=== PATIENT | female | born 1975 | race Caucasian/White ===

== ENCOUNTER → 2016-12-23 | Outpatient (CLI) | payer OTHER ==
[~2016-12-23] MED LIST: ACET-1256 PO; ATV1 PO; CLX20 PO; EFFSR150 PO; FAMO20TA11 PO; OXCA600T2 PO; QUET1TAB32 PO; QUET1TAB37 PO
--- NOTE | 2016-12-23 09:43 | DIAGNOSTIC IMAGING REPORT ---
BRAIN COMBO FOR SEIZURE HISTORY:41 [id number] Focal epilepsy with impairment of consciousness COMPARISON: None available. TECHNIQUE: Multiplanar multisequence MRI of the brain was obtained both with and without the use of 9 mL Gadavist utilizing seizure protocol. FINDINGS: There is no restricted diffusion to suggest acute ischemia. The midline structures including the corpus callosum, optic chiasm, pituitary gland, pineal gland, brainstem and cerebellar tonsils appear unremarkable the sagittal T1 series. There is a linear area of slightly increased T1/flair signal with associated enhancement correlating with enlarged medullary veins at the angle of the posterior body left lateral ventricle measuring up to 2.7 cm in length well seen on image 16 of the coronal T1 series and images 17 and 18 of the axial T1 postcontrast series compatible with developmental venous anomaly. Multiple focus of T2/flair prolongation within the right temporal parietal lobe as seen on image 14 of the coronal series is nonspecific and may be artifactual. Brain parenchyma is otherwise within normal limits without acute intracranial hemorrhage, midline shift, abnormal extra-axial collections, hydrocephalus or intracranial mass. There is mild asymmetric atrophy of the left hippocampus best seen on image 20 of the thin section coronal T2 series which has slightly increased amount of FLAIR signal on image 15 of the coronal FLAIR series. No associated enhancement. Opacified right maxillary sinus is noted. There is moderate ethmoid sinus disease. Flow voids at the skull base appear normal. Orbits are symmetric. IMPRESSION: 1. 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 2. 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 No significant surrounding gliosis or hemorrhage identified. 3. Paranasal sinus disease as above. The above report was generated using voice recognition software. It may contain grammatical, syntax or spelling errors. Electronically signed by: Maximo Winter M.D. 12/23/2016 9:42 AM Dictated Date/Time: 12/23/2016 9:24 AM
== END | disposition home or self-care (01) ==
LOC: C.MRIBC 08:17
PROVIDERS: ATTEND Psychiatry & Neurology Neurology
DX: G40.109 Localization-related (focal) (partial) symptomatic epilepsy and epileptic syndromes with simple partial seizures, not intractable, without status epilepticus (principal); J01.20 Acute ethmoidal sinusitis, unspecified; J01.00 Acute maxillary sinusitis, unspecified

== ENCOUNTER → 2017-02-05 | Outpatient (CLI) | payer OTHER ==
--- NOTE | 2017-02-06 12:26 | EEG Procedure Note ---
EEG Procedure Note Date of Service Feb 05, 2017. Start / End Times Start Time: 8:34am End Time: 9:34am Referring Physician Elissa Hansen History 42yr old female with focal epilepsy. 1hr EEG for further evaluation of epilepsy. Home Medication List Scheduled Acetaminophen (Tylenol), 1,000 MG PO QID PRN Citalopram (Celexa *), 20 MG PO DAILY Famotidine (Pepcid), 20 MG PO QAM Lorazepam (Ativan *), 1 MG PO TID Oxcarbazepine (Trileptal), 600 MG PO TID Quetiapine Fumarate (Seroquel), 50 MG PO QAM Quetiapine Fumarate (Seroquel), 300 MG PO HS Venlafaxine Ext Rel (Effexor Extended Rel *), 150 MG PO DAILY Description This is a 21 electrode EEG with a single channel dedicated to limited EKG. The electrodes were placed in accordance with the International 10-20 system. At the start of the recording the patient was in an awake state. The background was well organized and composed of symmetric mixed alpha and beta frequencies. There was a well formed symmetric moderate amplitude posterior dominant rhythm of 9-10Hz that was reactive to eye opening and closure. Hyperventilation was not done. Photic stimulation at various frequencies produced no abnormalities. Sleep was indicated by vertex waves and symmetric sleep spindles Interpretation This is a normal awake and asleep 1hr extended EEG There was no electrographic seizures or epileptiform discharges. Clinical Correlation A normal EEG does not rule out epilepsy if there is a strong clinical suspicion.
== END | disposition home or self-care (01) ==
LOC: C.NEUR 08:15
PROVIDERS: ATTEND Psychiatry & Neurology Neurology
DX: G40.109 Localization-related (focal) (partial) symptomatic epilepsy and epileptic syndromes with simple partial seizures, not intractable, without status epilepticus (principal)